=== PATIENT | female | born 2005 | race Caucasian/White ===

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

== ENCOUNTER 2023-01-24 19:28 | Emergency (ER) | payer BC, OTHER ==
[2023-01-24 19:34] VITALS: RESP 18; TEMP 98.7
--- NOTE | 2023-01-24 20:38 | XR ---
EXAMINATION: XR chest 2V: 01/24/2023 7:52 PM CLINICAL INDICATION: cough, congestion TECHNIQUE: Departmental protocol COMPARISON: None FINDINGS: The lungs are clear. The pleural spaces are negative. The cardiac silhouette is not enlarged. The remainder of the mediastinal silhouette is unremarkable. The skeletal structures and soft tissues are negative for acute findings. IMPRESSION: No acute process.
[2023-01-24] MEDS ORDERED: IPRATROPIUM-ALBUTEROL 3 ML NEB INHALATION STA ×3 (20:48→22:26)
[2023-01-24] MEDS ORDERED: DEXAMETHASONE SOD PHOSPHATE 10 MG/ML 1 ML VIAL IM STA (20:48)
--- NOTE | 2023-01-24 20:50 | ED ---
URI HPI - General Chief Complaint: Upper Respiratory Infection Stated Complaint: sob, chest pain Time Seen by Provider: 01/24/23 20:22 Source: patient, RN notes reviewed, old records reviewed Mode of arrival: ambulatory Limitations: no limitations - History of Present Illness Initial Comments: This is a 17-year-old female to the emergency department for cough congestion and feeling of wheezing. Some chest tightness. Persistent cough. No travel show sick contacts no fevers. Patient does smoke marijuana does not smoke cigarettes or today. No history of asthma underlying. Patient denying any current chest pain no leg swelling. He does admit to runny nose and difficulty clearing her throat, patient feels like when she coughs she cannot cough anything up MD Complaint: cough, nasal congestion -: days(s) Severity: moderate Severity scale (1-10): 6 Quality: sharp Consistency: constant Improves With: nothing Worsens With: nothing Context: sick contacts (Multiple patients that her work or sick) Associated Symptoms: nasal congestion, cough, shortness of breath Treatments Prior to Arrival: none - Related Data Previous Rx's Medication Instructions Recorded Cephalexin [Keflex] 500 mg PO Q12HR 5 Days #10 cap 08/16/22 Ondansetron Odt [Zofran Odt] 4 mg PO Q8HR PRN #15 tab 10/03/22 Albuterol Inhaler [Ventolin Hfa 1 - 2 puff INHALATION Q6H #1 each 01/24/23 Inhaler] predniSONE 50 mg PO DAILY #5 tab 01/24/23 Allergies Allergy/AdvReac Type Severity Reaction Status Date / Time No Known Allergies Allergy Verified 01/24/23 19:29 Review of Systems ROS Statement: Those systems with pertinent positive or pertinent negative responses have been documented in the HPI. ROS Other: All systems not noted in ROS Statement are negative. Past Medical History Past Medical History: Fibromyalgia Additional Past Medical History / Comment(s): ulcer colitisis, depression, History of Any Multi-Drug Resistant Organisms: None Reported Past Surgical History: Adenoidectomy, Appendectomy, Tonsillectomy Additional Past Surgical History / Comment(s): ostomy, Past Psychological History: Anxiety, Depression Smoking Status: Vaper Past Alcohol Use History: None Reported Past Drug Use History: Marijuana General Exam Limitations: no limitations General appearance: alert, in no apparent distress, anxious Head exam: Present: atraumatic, normocephalic, normal inspection Eye exam: Present: normal appearance, PERRL, EOMI. Absent: scleral icterus, conjunctival injection, periorbital swelling ENT exam: Present: normal exam, mucous membranes moist Neck exam: Present: normal inspection. Absent: tenderness, meningismus, lymphadenopathy Respiratory exam: Present: wheezes, accessory muscle use, decreased breath sounds, prolonged expiratory. Absent: respiratory distress, rales, rhonchi, stridor Cardiovascular Exam: Present: normal rhythm, tachycardia, normal heart sounds. Absent: systolic murmur, diastolic murmur, rubs, gallop, clicks GI/Abdominal exam: Present: soft, normal bowel sounds. Absent: distended, tenderness, guarding, rebound, rigid Extremities exam: Present: normal inspection, full ROM, normal capillary refill. Absent: tenderness, pedal edema, joint swelling, calf tenderness Back exam: Present: normal inspection Neurological exam: Present: alert, oriented X3, CN II-XII intact Psychiatric exam: Present: normal affect, normal mood Skin exam: Present: warm, dry, intact, normal color. Absent: rash Course Vital Signs 01/24/23 01/24/23 01/24/23 19:30 20:33 21:07 Temperature 98.7 F Pulse Rate 89 88 89 Respiratory 18 18 Rate Blood Pressure 145/88 130/94 O2 Sat by Pulse 98 100 Oximetry 01/24/23 01/24/23 01/24/23 21:20 22:00 22:34 Temperature Pulse Rate 100 84 88 Respiratory 18 Rate Blood Pressure 132/94 O2 Sat by Pulse 99 Oximetry 01/24/23 22:43 Temperature Pulse Rate 90 Respiratory Rate Blood Pressure O2 Sat by Pulse Oximetry - Reevaluation(s) Reevaluation #1: 01/24/23 22:28 Medical records reviewed Reevaluation #2: 01/24/23 22:28 Patient symptoms improved after second breathing treatment Reevaluation #3: 01/24/23 22:28 Patient informed results questions answered Reevaluation #4: 01/24/23 22:28 Was pt. sent in by a medical professional or institution (, PA, TUFTING SUPERVISOR, urgent care, hospital, or fpc...) When possible be specific @ -no Did you speak to anyone other than the patient for history (EMS, parent, family, police, friend...)? What history was obtained from this source @ -no Did you review nursing and triage notes (agree or disagree)? Why? @ -agree Are old charts reviewed (outside hosp., previous admission, EMS record, old EKG, old radiological studies, urgent care reports/EKG's, fpc records)? Report findings @ -yes Differential Diagnosis (chest pain, altered mental status, abdominal pain women, abdominal pain men, vaginal bleeding, weakness, fever, dyspnea, syncope, headache, dizziness, GI bleed, back pain, seizure, CVA, palpatations, mental health, musculoskeletal)? @ -prior EKG interpreted by me (3pts min.). @ -no X-rays interpreted by me (1pt min.). @ -yes CT interpreted by me (1pt min.). @ -no U/S interpreted by me (1pt. min.). @ -no What testing was considered but not performed or refused? (CT, X-rays, U/S, labs)? Why? @ -none What meds were considered but not given or refused? Why? @ -none Did you discuss the management of the patient with other professionals (professionals i.e. , PA, TUFTING SUPERVISOR, lab, RT, psych nurse, social work specialist, x ray technician, teacher, police booking officer, caser up)? Give summary @ -no Was smoking cessation discussed for >3mins.? @ -no Was critical care preformed (if so, how long)? @ -no Were there social determinants of health that impacted care today? How? (Homelessness, low income, unemployed, alcoholism, drug addiction, transportation, low edu. Level, literacy, decrease access to med. care, group home, rehab)? @ -none Was there de-escalation of care discussed even if they declined (Discuss DNR or withdrawal of care, Hospice)? DNR status @ -no What co-morbidities impacted this encounter? (DM, HTN, Smoking, COPD, CAD, Cancer, CVA, ARF, Chemo, Hep., AIDS, mental health diagnosis, sleep apnea, morbid obesity)? @ -none Was patient admitted / discharged? Hospital course, mention meds given and route, prescriptions, significant lab abnormalities, going to OR and other pertinent info. @ - 17 female to the emergency department for evaluation of cough congestion shortness of breath and patient also feels like she is wheezing. No history of asthma although the patient is wheezing on exam i which is significantly mproved after breathing treatments here in the ER x-rays testing is normal patient feels better and can be discharged home Discharge Undiagnosed new problem with uncertain prognosis? @ -no Drug Therapy requiring intensive monitoring for toxicity (Heparin, Nitro, Insulin, Cardizem)? @ -no Were any procedures done? @ -no Diagnosis/symptom? @ -Acute bronchitis, walking pneumonia Acute, or Chronic, or Acute on Chronic? @ -Acute Uncomplicated (without systemic symptoms) or Complicated (systemic symptoms)? @ -Complicated Side effects of treatment? @ -no Exacerbation, Progression, or Severe Exacerbation? @ -exacerbation Poses a threat to life or bodily function? How? (Chest pain, [place], [place], pneumonia, PE, COPD, DKA, ARF, appy, cholecystitis, CVA, Diverticulitis, Homicidal, Suicidal, threat to staff... and all critical care pts) @ -no Reevaluation #5: 01/24/23 22:28 Differential Dyspnea: Coronary syndrome, arrhythmia, tamponade, asthma, COPD, pulmonary embolism, pneumonia, pneumothorax, pulmonary effusion, anaphylaxis, diabetic ketoacidosis, flailed chest, pulmonary contusion, diaphragmatic rupture, anemia, neuromuscular, this is not meant to be an all-inclusive list. Medical Decision Making - Medical Decision Making 17 female to the emergency department for evaluation of cough congestion shortness of breath and patient also feels like she is wheezing. No history of asthma although the patient is wheezing on exam i which is significantly mproved after breathing treatments here in the ER x-rays testing is normal patient feels better and can be discharged home - Lab Data Lab Results 01/24/23 Range/Units 19:38 Influenza Type A (PCR) Not Detected (Not Detectd) Influenza Type B (PCR) Not Detected (Not Detectd) RSV (PCR) Not Detected (Not Detectd) SARS-CoV-2 (PCR) Not Detected (Not Detectd) - Radiology Data Radiology results: report reviewed (Chest x-rays negative for acute disease), image reviewed Disposition Clinical Impression: Upper respiratory tract infection, Bronchitis, Acute upper respiratory infection, Asthmatic bronchitis Disposition: HOME SELF-CARE Condition: Good Instructions (If sedation given, give patient instructions): Upper Respiratory Infection (ED) Prescriptions: predniSONE 50 mg PO DAILY #5 tab Albuterol Inhaler [Ventolin Hfa Inhaler] 1 - 2 puff INHALATION Q6H #1 each Is patient prescribed a controlled substance at d/c from ED?: No Referrals: Nonstaff,Physician [Primary Care Provider] - 1-2 days Time of Disposition: 22:30
[2023-01-24 22:23] VITALS: BP 132/94
[2023-01-24] MEDS ORDERED: AZITHROMYCIN 500 MG TAB PO STA (22:26)
[2023-01-24 22:45] VITALS: PULSE 90
== END 2023-01-24 22:49 | disposition home or self-care (01) ==
LOC: EC 19:28
DX: J06.9 Acute upper respiratory infection, unspecified (principal); J40 Bronchitis, not specified as acute or chronic; F12.90 Cannabis use, unspecified, uncomplicated; F17.290 Nicotine dependence, other tobacco product, uncomplicated; Z86.59 Personal history of other mental and behavioral disorders; Z20.822 Contact with and (suspected) exposure to COVID-19
CPT/HCPCS: 94640 ×2; 93005; 87636; 71046; 99285; 96372; J1100

== ENCOUNTER 2023-02-22 09:29 | Day surgery (SDC) | payer BC, OTHER ==
[2023-02-20 11:59] VITALS: BMI 24.2
[2023-02-22] MEDS: LACTATED RINGERS 1,000 ML IV SCH ×2 (10:52→11:04)
[2023-02-22 10:54] VITALS: TEMP 98.1
[2023-02-22] MEDS ORDERED: PROPOFOL 10 MG/ML 20 ML VIAL IV ONE (11:06)
--- NOTE | 2023-02-22 11:22 | P.PCN ---
Date of Procedure: 02/22/23 Procedure(s) Performed: BRIEF HISTORY: Patient is a 18-year-old pleasant 8 female scheduled for an elective flexible sigmoidoscopy is part of evaluation of rectal bleeding for the last few weeks duration. Patient has history of refractory ulcerative colitis for which she underwent subtotal colectomy with ileostomy in 2020 at [facility]. Because of intermittent rectal bleeding for the last few weeks she is scheduled for sigmoidoscopy PROCEDURE PERFORMED: Flexible sigmoidoscopy with biopsy PREOPERATIVE DIAGNOSIS: Intermittent rectal bleeding a few days duration. IV sedation per Anesthesia. PROCEDURE: After informed consent was obtained, the patient, was brought into the endoscopy unit. IV sedation was administered by Anesthesia under continuous monitoring. Digital rectal examination was normal. Initially the Olympus CF-160 flexible video endoscopic was inserted into the rectum and gradually advanced up to 12 cm from the anal verge and there was mucosal erythema with oozing identified. There was narrowing of the proximal rectum noted and I was not able to pass the scope any further. At this time biopsies were done from the mid and distal rectum. The patient tolerated the procedure well. IMPRESSION: Mucosal erythema with oozing noted throughout the entire rectum up to 40 cm from the anal verge, status post multiple biopsies to evaluate for ulcerative proctitis versus dilation colitis. History of subtotal colectomy with ileostomy RECOMMENDATIONS: Findings of this examination were discussed with the patient as well as a family. She was advised to follow with the biopsy results. She will continue with hydrocortisone cream as needed. He'll be seen in office in 2 weeks..
[2023-02-22 11:39] VITALS: BP 137/86; PULSE 80; RESP 20
== END 2023-02-22 12:15 | disposition home or self-care (01) ==
LOC: ORWHC2ENDO 09:29
PROVIDERS: ATTEND Internal Medicine Gastroenterology
DX: K51.90 Ulcerative colitis, unspecified, without complications (principal); I10 Essential (primary) hypertension; J45.909 Unspecified asthma, uncomplicated; F32.9 Major depressive disorder, single episode, unspecified; Z79.51 Long term (current) use of inhaled steroids; Z90.49 Acquired absence of other specified parts of digestive tract; Z93.2 Ileostomy status; Z79.899 Other long term (current) drug therapy
CPT/HCPCS: 81025; 88305; 45330; J2704

== ENCOUNTER 2023-08-23 11:48 | Day surgery (SDC) | payer BC, OTHER ==
[2023-08-21 11:36] VITALS: BMI 25.6
[~2023-08-23 11:48] MED LIST: LIDOCAINE 1% (10MG/ML) FOR IV START INTRADERMA PRN
[2023-08-23] MEDS: LACTATED RINGERS 1,000 ML IV SCH (11:57)
[2023-08-23 12:54] VITALS: RESP 18; TEMP 98
[2023-08-23] MEDS ORDERED: PROPOFOL 10 MG/ML 20 ML VIAL IV ONE (12:57)
[2023-08-23] MEDS ORDERED: LIDOCAINE 1% INJ 10MG/ML (20 ML MDV) ONE (12:57)
--- NOTE | 2023-08-23 13:13 | P.PCN ---
Date of Procedure: 08/23/23 Procedure(s) Performed: BRIEF HISTORY: Patient is a 18-year-old, pleasant, white female scheduled for an upper endoscopy as a part of evaluation of chronic epigastric pain and heartburn for the last several months. PROCEDURE PERFORMED: Esophagogastroduodenoscopy with biopsy. PREOPERATIVE DIAGNOSIS: Chronic epigastric pain and heartburn. IV sedation per anesthesia. PROCEDURE: After informed consent was obtained, the patient was brought into the endoscopy unit. IV sedation was administered by Anesthesia under continuous monitoring. Initially the Olympus GIF-140 video endoscope was inserted into the mouth. Esophagus intubated without any difficulty. It was gradually advanced into the stomach and duodenum and carefully examined. The bulb and the second part of the duodenum appeared normal. Biopsies were done from the duodenum to rule out celiac disease. The scope at this time was withdrawn to the stomach, adequately insufflated with air, and upon careful examination, mucosa of the antrum, mild patchy areas of erythema consistent with gastritis and biopsies were done from this area. Mucosa of the body, cardia and the fundus appeared normal. The scope was then withdrawn into the esophagus. The GE junction was located at 39 cm from the incisors. The esophagus appeared normal. There were no erosions or ulcerations seen, biopsies were done from the distal esophagus and the patient tolerated the procedure well. IMPRESSION: 1. Mild antral gastritis. 2. No evidence of esophagitis or peptic ulcer disease. RECOMMENDATIONS: The findings of this examination were discussed with the patient as well as a family. She was advised to continue with omeprazole 20 mg twice daily and follow antireflux measures. Follow up in office in 3-4 months..
[2023-08-23 14:01] VITALS: BP 108/72; PULSE 77
== END 2023-08-23 14:28 | disposition home or self-care (01) ==
LOC: ORWHC2ENDO 11:48
PROVIDERS: ATTEND Internal Medicine Gastroenterology
DX: K29.50 Unspecified chronic gastritis without bleeding (principal); K31.9 Disease of stomach and duodenum, unspecified; G89.29 Other chronic pain; D72.820 Lymphocytosis (symptomatic); J45.909 Unspecified asthma, uncomplicated; M79.7 Fibromyalgia; K21.9 Gastro-esophageal reflux disease without esophagitis; F12.90 Cannabis use, unspecified, uncomplicated; F41.9 Anxiety disorder, unspecified; F32.A Depression, unspecified; F43.10 Post-traumatic stress disorder, unspecified; F17.290 Nicotine dependence, other tobacco product, uncomplicated; Z79.51 Long term (current) use of inhaled steroids; Z79.899 Other long term (current) drug therapy; Z90.49 Acquired absence of other specified parts of digestive tract
CPT/HCPCS: 81025; 88305; 43239; J2001; J2704

== ENCOUNTER → 2023-10-18 | Outpatient (CLI) | payer BC, OTHER ==
--- NOTE | 2023-10-18 12:38 | FL ---
EXAMINATION TYPE: FL UGI w small bowel DATE OF EXAM: 10/18/2023 COMPARISON: NONE HISTORY: Epigastric pain TECHNIQUE: A double contrast UGI study is performed with small bowel follow through. A total of 2 m inutes and 52 seconds of fluoroscopic time was utilized during procedure and 27 images obtained. Tot al dose area product (DAP) in uGy*m?, mGy*cm? (or similar): Not provided. FINDINGS: Senior Administrative Services Officer image of the abdomen shows no no diagnostic evidence of obstruction. Findings consis tent with the patient's reported history of prior ostomy. Spina bifida occulta at lumbosacral junctio n. The esophagus shows normal motility and emptying into the stomach. No evidence of hiatal hernia or s tricture noted. No esophageal reflux identified. There is mild thickening of the mucosal folds of the stomach correla te for mild gastritis.. The duodenal bulb and sweep are unremarkable. The small bowel study shows normal transit to the colon in less than 70 minutes. There is normal muc osal fold pattern throughout the small bowel. There is no evidence of any stricture or filling defec t noted. Distal ileum extending to the ostomy demonstrates no definite abnormality. IMPRESSION: 1. Mild gastric fold thickening correlate for gastritis.
== END | disposition home or self-care (01) ==
LOC: RADFLMAIN 09:31
PROVIDERS: ATTEND Internal Medicine Gastroenterology
DX: K31.89 Other diseases of stomach and duodenum (principal); R10.13 Epigastric pain
CPT/HCPCS: 74240; 74248

== ENCOUNTER → 2024-01-16 | Outpatient (CLI) | payer BC, OTHER ==
--- NOTE | 2024-01-16 12:19 | CT ---
EXAMINATION TYPE: CT abdomen pelvis w con DATE OF EXAM: 01/16/2024 COMPARISON: HISTORY: ABD PAIN CT DLP: 528.3 mGycm Automated exposure control for dose reduction was used. TECHNIQUE: Helical acquisition of images was performed from the lung bases through the pelvis. CONTRAST: Performed with Oral Contrast and with IV Contrast, patient injected with 100 mL of Isovue 300. FINDINGS: The lung bases are clear. The gallbladder is normal without distention, wall thickening, pericholecystic fluid or gallstones. T here is no biliary ductal dilatation. There is no focal mass or organomegaly involving the liver, pancreas, spleen or adrenal glands. There is no solid renal mass or hydronephrosis and there is homogeneous contrast enhancement of the r enal parenchyma. The caliber the abdominal aorta is normal is no retroperitoneal adenopathy or hemorr zaire. The patient is status post colectomy with a right lower quadrant small bowel ostomy. There is no infl ammation within the abdomen or pelvis. There is no free intraperitoneal air or fluid. No pelvic mass, free fluid, abscess or adenopathy. The osseous structures and soft tissues are intact. IMPRESSION: Postsurgical change of colectomy and right lower quadrant ostomy. No acute changes are seen within th e abdomen or pelvis.
== END | disposition home or self-care (01) ==
LOC: RADCTMAIN 10:00
PROVIDERS: ATTEND Surgery
DX: K51.919 Ulcerative colitis, unspecified with unspecified complications (principal); Z90.49 Acquired absence of other specified parts of digestive tract
CPT/HCPCS: 74177; Q9967